=== PATIENT | male | born 1935 | race Caucasian/White ===

== ENCOUNTER → 2019-06-17 | Outpatient (CLI) | payer MEDICARE ==
[2019-06-17 12:57] LABS: HCT 48.4 % (39.0-53.0); HGB 15.4 gm/dL (13.0-17.5); MCH 31.6 pg (25.0-35.0); MCHC 31.9 g/dL (31.0-37.0); MCV 99.2 fL (80.0-100.0); Mean Platelet Volume 7.6; Platelet Count 217 k/uL (150-450); RBC 4.88 m/uL (4.30-5.90); RDW 13.2 % (11.5-15.5); WBC 6.9 k/uL (3.8-10.6)
[2019-06-17 19:26] LABS: African American GFR (CKD) 91.9 (60.0-200.0); Anion Gap 8.6 mmol/L (4.00-12.00); Carbon Dioxide 28.4 mmol/L (21.6-31.8); Non-African American GFR(CKD) 79.3 (60.0-200.0); Potassium 4.9 mmol/L (3.5-5.5)
== END | disposition home or self-care (01) ==
LOC: LABWHC1 12:05
PROVIDERS: ATTEND Internal Medicine Interventional Cardiology
DX: Z01.812 Encounter for preprocedural laboratory examination (principal); R94.39 Abnormal result of other cardiovascular function study
CPT/HCPCS: 36415; 80051; 82565; 84520; 85027

== ENCOUNTER 2019-06-22 10:46 | Day surgery (SDC) | payer MEDICARE ==
[2019-06-17 15:05] VITALS: BMI 30.8
[~2019-06-22 10:46] MED LIST: ALPRAZolam 0.25 MG TAB PO PRN; ALPRAZolam 0.5 MG TAB PO PRN; ASPIRIN 325 MG TAB PO STA; ATORVASTATIN 80 MG TAB PO STA; NITROGLYCERIN SL TABS 0.4 MG TAB SUBLINGUAL PRN; SODIUM CHLORIDE 0.9% 1,000 ML in EMPTY BAG 1 BAG IV ONE
[2019-06-22 11:41] VITALS: RESP 16
[2019-06-22] MEDS ORDERED: SODIUM CHLORIDE 0.9% 1,000 ML IV ONE (11:43)
[2019-06-22] MEDS ORDERED: LIDOCAINE 1% INJ 10MG/ML (20 ML MDV) ONE (11:56)
[2019-06-22] MEDS ORDERED: VERAPAMIL 2.5 MG/ML 2 ML AMP ONE (11:56)
[2019-06-22] MEDS ORDERED: HEPARIN SODIUM 1,000 UN/ML (10ML VL) ONE (11:59)
[2019-06-22] MEDS ORDERED: fentaNYL (PF) 50 MCG/ML 2 ML AMP ONE (11:59)
[2019-06-22] MEDS ORDERED: fentaNYL (PF) 50 MCG/ML 2 ML AMP IVP ONE (12:07)
[2019-06-22] MEDS ORDERED: LIDOCAINE 1% INJ 10MG/ML (20 ML MDV) SQ ONE (12:09)
[2019-06-22] MEDS: VERAPAMIL SYRINGE (5 MG/10 ML) INTRAARTER ONE ×2 (12:10→12:21)
[2019-06-22] MEDS ORDERED: BIVALIRUDIN BOLUS 250 MG/50 ML IV ONE (12:24)
[2019-06-22] MEDS ORDERED: BIVALIRUDIN 250 MG in SODIUM CHLORIDE 0.9% 50 ML IV ONE (12:24)
[2019-06-22] MEDS ORDERED: CLOPIDOGREL 75 MG TAB ONE (12:26)
[2019-06-22] MEDS ORDERED: CLOPIDOGREL 75 MG TAB PO ONE (12:29)
[2019-06-22] MEDS ORDERED: IOPAMIDOL-370 125ML BTL INJ ONE (12:33)
[2019-06-22] MEDS ORDERED: IOPAMIDOL-370 100ML BTL INJ ONE (12:46)
[2019-06-22] MEDS ORDERED: ATROPINE SULFATE 0.1 MG/ML 10ML SYRINGE IV PRN (12:55)
[2019-06-22] MEDS ORDERED: NITROGLYCERIN SL TABS 0.4 MG TAB SUBLINGUAL PRN (12:55)
[2019-06-22] MEDS ORDERED: MAG HYDROX/AL HYDROX/SIMETH 30 ML CUP PO PRN (12:55)
[2019-06-22] MEDS ORDERED: ZOLPIDEM 5 MG TAB PO PRN (12:55)
[2019-06-22] MEDS ORDERED: RX INFO: IV CONTRAST WAS GIVEN 1 EACH MISC MISCELLANE PRN (12:55)
[2019-06-22] MEDS ORDERED: SODIUM CHLORIDE 0.9% 1,000 ML IV SCH (13:00)
--- NOTE | 2019-06-22 14:50 | CC ---
CARDIAC CATHETERIZATION REPORT Mr. Vega an 84-year-old male with a known history of complete heart block, permanent pacemaker implantation, who recently has been complaining of progressive dyspnea on exertion, was found to have a worsening of his left ventricular systolic function. In view of that, recommendation made regarding cardiac catheterization, the procedures, risks, and complication were discussed with the patient who is in full understanding and agreement. PROCEDURE: Patient was brought to environmental laboratory technician in a fasting semi-sedated state after receiving fentanyl and Benadryl and achieving moderate conscious sedated state. Using Xylocaine anesthesia and Seldinger technique, a 6-Polish sheath was introduced in the right radial artery. Selective right and left coronary angiography performed using 5-Polish 3.5 bend, right and left Guero catheter, multiple views of the coronary artery including hemiaxial views obtained, the 5-Polish right Guero was used to cross the aortic valve and left ventricular end-diastolic pressure was calculated. Following that, catheters were removed, images were reviewed. FINDINGS: FLUOROSCOPY: There was calcification involving the left anterior descending artery and the left circumflex. LEFT MAIN: This is a large-sized vessel, bifurcating into left circumflex, left anterior descending artery. Left main coronary artery has no evidence of high-grade stenosis. LEFT ANTERIOR DESCENDING ARTERY: This is a vessel that is totally occluded proximally at the takeoff of the first diagonal branch with no significant antegrade flow into the LAD in a calcified segment. LEFT CIRCUMFLEX: This vessel is nondominant, large in caliber, giving rise to a large obtuse marginal branch. The obtuse marginal branch has a long segment of significant stenosis involving the proximal segment of the obtuse marginal branch up to 90%. The rest of the vessel has no high-grade stenosis. RIGHT CORONARY ARTERY: This is a nondominant vessel, moderate in caliber, bifurcating distally into PDA and posterolateral segment and branches. The right coronary artery in mid segment has intimal disease of 20% to 30% throughout its course. COLLATERALS: There is collateral from the RCA PDA toward the LAD and the septal frit mixer and burner. LEFT VENTRICULOGRAM: Left ventriculogram was not performed. HEMODYNAMICS: There was no gradient across the aortic valve. The left ventricular end- diastolic pressure was 10-12 mmHg. CONCLUSION: 1. Calcified coronary arteries. 2. Chronic occluded LAD. 3. Critical stenosis in the left circumflex obtuse marginal branch. 4. Mild to moderate disease in the RCA. RECOMMENDATION: In view of finding anatomy, I recommend proceeding with angioplasty and stenting of the left circumflex and once stabilized, attempt to proceed with angioplasty of the LAD. Those findings and recommendation were discussed with the patient and he is full understanding and agreement. MISTI / PREET: [id number] /
--- NOTE | 2019-06-22 17:03 | CC ---
CARDIAC CATHETERIZATION REPORT Mr. Vega is an 83-year-old male with a known history of hypertension, history of complete heart block and permanent pacemaker implantation, who has been noted to have progressive dyspnea and evidence of his new cardiomyopathy. He underwent cardiac catheterization, was found to have critical stenosis in the large 1st obtuse marginal branch as well as chronically occluded right coronary artery with collaterals from the right coronary system. In view of that, recommendation was made regarding angioplasty and stenting. The procedures as well as risks and complications were discussed with the patient who is in full understanding and agreement. PROCEDURE DETAILS: A 6-Kinyarwanda EBU 3.75 guiding catheter was introduced into the system. After cannulating the left main, a 0.014 balanced medium weight J-wire was advanced across the lesion and positioned in the distal obtuse marginal branch. Following that, a 2.5 x 15 mm Trek balloon was advanced and two inflations at 10 atmospheres were done. Following that, the balloon was removed and a 3.25 x 23 mm Xience Brionna stent was advanced, deployed and post dilated at 16 atmospheres. After the last inflation, after appropriate wait, the balloon and the guidewire were withdrawn back in the guiding catheter. Images were obtained, repeated. Those images reveal stable successful stenting. At that point, the guiding catheter, the balloon and the guidewire were removed. The sheath was removed. Hemostasis was obtained with deployment of a TR band. There was no immediate complication. Patient is returned to his room in stable condition. Of note, the patient received Angiomax per protocol as well as oral loading dose of clopidogrel. He has no chest discomfort and he was 100% paced. RESULTS: Successful stenting of a large 1st obtuse marginal branch with reduction of stenosis from 90% to 0%. RECOMMENDATIONS: Patient will be continued on aspirin, Plavix, beta nena, ANAND inhibitors and statin. He will be re-evaluated at a later time at an attempt to recannulize the right coronary artery. The procedures, risks and complications were discussed with the patient as well as the plan. Those findings were discussed with him and his family and they are in full understanding and agreement. Duration of procedure: 32 minutes. MMWILLIAML / FREDDYN: [id number] /
[2019-06-22] MEDS: GABAPENTIN 400 MG CAP PO SCH ×2 (17:19→21:24)
[2019-06-22] MEDS ORDERED: ATORVASTATIN 80 MG TAB PO SCH (21:00)
[2019-06-22] MEDS: ATENOLOL 25 MG TAB PO SCH (21:24)
[2019-06-23 06:19] LABS: African American GFR (CKD) >90 (>60 ml/min/1.73 sqM); Anion Gap 6 mmol/L; Blood Urea Nitrogen 19 mg/dL (9-20); Calcium 9.1 mg/dL (8.4-10.2); Carbon Dioxide 26 mmol/L (22-30); Chloride 104 mmol/L (98-107); Glucose 90 mg/dL (74-99); Non-African American GFR(CKD) 87 (>60 ml/min/1.73 sqM); Potassium 4.6 mmol/L (3.5-5.1); Sodium 136 mmol/L (137-145)
[2019-06-23] MEDS ORDERED: PANTOPRAZOLE 40 MG TABLET PO SCH (07:30)
--- NOTE | 2019-06-23 07:40 | PN ---
PROGRESS NOTE Mr. Vega is an 84-year-old male with a history of permanent pacemaker implantation, history of hypertension who presented with symptoms progressive dyspnea, was found to have severe worsening of his left ventricular systolic function. He underwent cardiac catheterization, was found to have critical stenosis in the left circumflex and totally occluded LAD with collateral from the right coronary system. In view of that, he underwent stenting of his left circumflex. He is doing well this morning. His breathing stable. He is denying any dizziness. No palpitation. He denies any nausea. He continued on aspirin once a day, atenolol 25 mg twice a day, Lipitor 80 mg daily, Plavix 75 mg daily, isosorbide mononitrate 30 mg daily, losartan 25 mg daily, Protonix 40 mg daily. PHYSICAL EXAMINATION: Blood pressure 105/60 with the heart rate in the 60s. LUNGS: Clear. HEART: Regular rate and rhythm. S1, S2. No S3. No rub. ABDOMEN: Soft, nontender. EXTREMITIES: No edema. Right radial pulse intact. EKG revealed a paced rhythm. LAB DATA: Lab data revealed BUN and creatinine 19 and 0.71 with a potassium 4.6. IMPRESSION: 1. Status post stenting of the left circumflex. 2. Totally occluded left anterior descending artery. 3. History of cardiomyopathy. RECOMMENDATION: Patient will be discharged home today to be re-admitted to the hospital to undergo attempt to stent and recanalized the left anterior descending artery with support from an Impella. The rationale behind the plan was discussed with the patient and his daughter and they are in full understanding and agreement. MMODL / IJN: [id number] /
[2019-06-23 07:42] VITALS: BP 125/70; PULSE 66; TEMP 97.9
[2019-06-23] MEDS: GABAPENTIN 400 MG CAP PO SCH (07:42)
[2019-06-23] MEDS: ATENOLOL 25 MG TAB PO SCH (07:42)
[2019-06-23] MEDS ORDERED: ASPIRIN 81 MG PO SCH (09:00)
[2019-06-23] MEDS ORDERED: LOSARTAN 25 MG TAB PO SCH (09:00)
[2019-06-23] MEDS ORDERED: ISOSORBIDE MONONITRATE ER 30 MG TAB.ER.24H PO SCH (09:00)
[2019-06-23] MEDS ORDERED: MULTIVITAMINS, THERA 1 EACH TAB PO SCH (09:00)
[2019-06-23] MEDS ORDERED: CLOPIDOGREL 75 MG TAB PO SCH (12:00)
== END 2019-06-23 08:49 | disposition home or self-care (01) ==
LOC: CATHCVL 10:46 → 3SCARD 15:06 → CATHCVL 06-23 08:49
PROVIDERS: ATTEND Internal Medicine Interventional Cardiology
DX: I25.10 Atherosclerotic heart disease of native coronary artery without angina pectoris (principal); I25.82 Chronic total occlusion of coronary artery; I44.2 Atrioventricular block, complete; I25.5 Ischemic cardiomyopathy; I10 Essential (primary) hypertension; Z95.0 Presence of cardiac pacemaker; Z79.82 Long term (current) use of aspirin; Z79.899 Other long term (current) drug therapy; Z79.02 Long term (current) use of antithrombotics/antiplatelets; Z72.0 Tobacco use
CPT/HCPCS: 93458; 80048; C9600; C1769 ×2; C1887; C1725; C1874; C1894; J2001; J3010; J0583; Q9967 ×2

== ENCOUNTER 2019-07-01 10:15 | Inpatient (IN) | payer MEDICARE ==
[2019-07-01] MEDS ORDERED: SODIUM CHLORIDE 0.9% 1,000 ML IV ONE (11:35)
[2019-07-01 11:42] LABS: Basophils % (A) 0 %; Eosinophils # (A) 0.3 k/uL (0-0.7); Eosinophils % (A) 3 %; HCT 46.3 % (39.0-53.0); HGB 15.7 gm/dL (13.0-17.5); Lymphocytes # (A) 1.7 k/uL (1.0-4.8); Lymphocytes % (A) 18 %; MCH 32.9 pg (25.0-35.0); MCHC 33.9 g/dL (31.0-37.0); Mean Platelet Volume 7.4; Monocytes % (A) 11 %; Neutrophils # (A) 5.9 k/uL (1.3-7.7); Neutrophils % (A) 64 %; Platelet Count 246 k/uL (150-450); RBC 4.78 m/uL (4.30-5.90); WBC 9.3 k/uL (3.8-10.6)
[2019-07-01] MEDS ORDERED: LIDOCAINE 1% INJ 10MG/ML (20 ML MDV) ONE (13:34)
[2019-07-01] MEDS ORDERED: HEPARIN SODIUM 1,000 UN/ML (10ML VL) ONE (13:35)
[2019-07-01] MEDS ORDERED: fentaNYL (PF) 50 MCG/ML 2 ML AMP ONE (13:35)
[2019-07-01] MEDS ORDERED: fentaNYL (PF) 50 MCG/ML 2 ML AMP IV ONE (13:37)
[2019-07-01] MEDS ORDERED: LIDOCAINE 1% INJ 10MG/ML (20 ML MDV) SQ ONE ×2 (13:43→13:51)
[2019-07-01] MEDS ORDERED: BIVALIRUDIN BOLUS 250 MG/50 ML IV ONE (14:09)
[2019-07-01] MEDS ORDERED: BIVALIRUDIN 250 MG in SODIUM CHLORIDE 0.9% 36 ML IV ONE (14:10)
[2019-07-01] MEDS ORDERED: IOPAMIDOL-370 125ML BTL INJ ONE (14:37)
[2019-07-01] MEDS ORDERED: MIDAZOLAM 2 MG/2 ML VIAL IV ONE (14:54)
[2019-07-01] MEDS ORDERED: NITROGLYCERIN 1000MCG/10ML SYRINGE INTRACORON ONE (14:54)
[2019-07-01] MEDS ORDERED: BIVALIRUDIN 250 MG in SODIUM CHLORIDE 0.9% 50 ML IV ONE (14:58)
[2019-07-01] MEDS ORDERED: IOPAMIDOL-370 100ML BTL INJ ONE ×2 (15:01→15:30)
[2019-07-01] MEDS ORDERED: CLOPIDOGREL 75 MG TAB ONE (15:17)
[2019-07-01] MEDS ORDERED: CLOPIDOGREL 75 MG TAB PO ONE (15:30)
[2019-07-01] MEDS ORDERED: MAG HYDROX/AL HYDROX/SIMETH 30 ML CUP PO PRN (16:00)
[2019-07-01] MEDS ORDERED: RX INFO: IV CONTRAST WAS GIVEN 1 EACH MISC MISCELLANE PRN (16:00)
[2019-07-01] MEDS ORDERED: ATROPINE SULFATE 0.1 MG/ML 10ML SYRINGE IV PRN (16:00)
[2019-07-01] MEDS ORDERED: NITROGLYCERIN SL TABS 0.4 MG TAB SUBLINGUAL PRN (16:00)
[2019-07-01] MEDS ORDERED: ZOLPIDEM 5 MG TAB PO PRN (16:00)
[2019-07-01 16:29] LABS: Glucose,Whole Blood 121 mg/dL (75-99)
[2019-07-01] MEDS: SODIUM CHLORIDE 0.9% 1,000 ML IV SCH ×2 (17:12→21:16)
[2019-07-01] MEDS ORDERED: ATORVASTATIN 80 MG TAB PO SCH (21:00)
--- NOTE | 2019-07-01 21:05 | PTCA ---
PERCUTANEOUSTRANS CORORONARY ANGIOGRAPHY Mr. Vega is an 84-year-old male with known history of complete heart block, status post permanent pacemaker implantation, prior placement of a stent in the left circumflex because of severe coronary artery disease and severe cardiomyopathy done 2 weeks ago. He had a totally occluded LAD in the proximal segment. In view of that, recommendation was made regarding angioplasty and stenting and placement of an Impella device. The procedure, its risks and complication were discussed with the patient, who was in full understanding and agreement. PROCEDURE DESCRIPTION: Patient was brought to the pathology laboratory aides teacher in a fasting, semi-sedated state after receiving fentanyl and Benadryl. Using micropuncture catheter, micropuncture sheath was introduced into the right and left femoral artery. After obtaining images of the femoral arteries, a 7-Monegasque sheath was introduced in the right femoral artery. Following that, a 2.5 Impella catheter was introduced in the left femoral artery. After dilating with subsequent dilators and after securing the Impella catheter in place and starting perfusion, attempts were made to cannulate the left main using a 7- Monegasque EBU 3.75, a 7-Monegasque, 4 bend left Guero, and a 7-Monegasque LBU 4.0. These attempts were unsuccessful. Subsequently a 7-Monegasque FL5 guiding catheter was introduced in the system. After cannulating the left main, a 0.014 balanced medium weight J-wire was advanced and positioned in distal left circumflex. Subsequently another 0.014 balanced medium weight J-wire was advanced across the total occlusion of the LAD with the help of a microcatheter. After positioning the wire distally, the microcatheter was removed and a 2.5 x 12 mm balloon was advanced and multiple inflations at 10 atmospheres were done. Following that the balloon was removed and a 0.014 Whisper J-wire was advanced into the diagonal branch and positioned distally. Subsequently a 2.5 x 12 mm Trek balloon was advanced and multiple inflations at 8 atmospheres were done. Following that, the balloon was removed and a 2.5 x 23 mm Xience Brionna stent was deployed post-dilated at 18 atmospheres. Following that the balloon was removed and another 2.5 x 12 mm Xience Brionna stent was deployed distal to the first one and post-dilated at 16 atmospheres. Following that the balloon was removed and a 3.0 x 15 mm NC Trek balloon was advanced and inflations were done up to 14 atmospheres in the proximal stent. After the last inflation, after appropriate wait, the balloon and the guidewire were withdrawn back in the guiding catheter. Images were obtained and repeated. Those images reveal stable successful stenting. At that point, the Impella catheter was weaned off and removed. Hemostasis was obtained with deployment of a Perclose that was placed pre insertion as well as an 8-Monegasque Angio- Seal, obtaining good hemostasis on the left side. Attempts to Perclose the right femoral artery were unsuccessful as well as Angio-Seal, so the catheter was removed and pressure was applied. There was no immediate complication. Patient was returned to his room in stable condition. Of note, the patient received Angiomax per protocol. He had mild chest discomfort that resolved at the end procedure. RESULT: Successful stenting of the proximal left anterior descending artery with reduction of stenosis from 100% to 0%. RECOMMENDATIONS: Patient will be continued on aspirin, Plavix, beta blockers and statin. The importance of dual antiplatelet treatment was discussed with the patient and his family, who are in full understanding and agreement. MMODL / IJN: [id number] /
--- NOTE | 2019-07-01 21:05 | PTCA ---
PERCUTANEOUSTRANS CORORONARY ANGIOGRAPHY ADDENDUM TO PERCUTANEOUS TRANSLUMINAL CORONARY ANGIOPLASTY: Duration of procedure was 107 minutes. MISTI / FREDDYN: [id number] /
[2019-07-01] MEDS: GABAPENTIN 400 MG CAP PO SCH (21:11)
[2019-07-01] MEDS: ATENOLOL 25 MG TAB PO SCH (21:11)
--- NOTE | 2019-07-01 21:11 | LTR ---
July 01, 2019 To: Dr. Kwok Re: Glenn Vega (37) Dear Dr. Kwok: I had the pleasure of performing coronary angioplasty and stenting on Mr. Vega at [facility] today, and a full copy of the procedure note will be forwarded to you. In brief, he underwent successful recanalization of a chronically occluded LAD with the assistance of an Impella catheter. I am hopeful that this procedure will help improve his left ventricular systolic function and his symptoms. I will keep you updated on his progress. Thank you again for allowing me to participate in his care. Please feel free to call with any questions. Sincerely, MD MISTI Bernal / PREET: [id number] /
[2019-07-02 04:14] VITALS: TEMP 97.6
[2019-07-02 05:05] LABS: Basophils % (A) 0 %; Eosinophils # (A) 0.3 k/uL (0-0.7); Eosinophils % (A) 3 %; HCT 40.4 % (39.0-53.0); HGB 13.6 gm/dL (13.0-17.5); Lymphocytes # (A) 0.9 k/uL (1.0-4.8); Lymphocytes % (A) 11 %; MCH 32.6 pg (25.0-35.0); MCHC 33.6 g/dL (31.0-37.0); Mean Platelet Volume 7.7; Monocytes # (A) 1.1 k/uL (0-1.0); Monocytes % (A) 13 %; Neutrophils # (A) 5.8 k/uL (1.3-7.7); Neutrophils % (A) 69 %; Platelet Count 217 k/uL (150-450); RBC 4.17 m/uL (4.30-5.90); RDW 13.1 % (11.5-15.5); WBC 8.5 k/uL (3.8-10.6)
[2019-07-02 05:17] LABS: African American GFR (CKD) >90 (>60 ml/min/1.73 sqM); Anion Gap 5 mmol/L; Blood Urea Nitrogen 16 mg/dL (9-20); Calcium 8.6 mg/dL (8.4-10.2); Carbon Dioxide 27 mmol/L (22-30); Chloride 103 mmol/L (98-107); Glucose 110 mg/dL (74-99); Non-African American GFR(CKD) >90 (>60 ml/min/1.73 sqM); Potassium 4.4 mmol/L (3.5-5.1); Sodium 135 mmol/L (137-145)
[2019-07-02] MEDS ORDERED: PANTOPRAZOLE 40 MG TABLET PO SCH (07:30)
--- NOTE | 2019-07-02 07:39 | PN ---
PROGRESS NOTE Mr. Vega is an 84-year-old male who was admitted yesterday and underwent stenting of a chronically occluded LAD with an Impella placement. He is doing well this morning. His breathing is stable. He is denying any chest pain. No dizziness. No palpitation. He continues to be on aspirin once a day, Plavix 75 mg daily, Lipitor 80 mg daily, gabapentin 800 mg 3 times a day, isosorbide mononitrate 30 mg daily, losartan 25 mg daily. PHYSICAL EXAMINATION: Blood pressure 106/60 with the heart rate in the 60s. LUNGS: Clear. HEART: Regular rate and rhythm. S1, S2. No S3. With systolic murmur. No diastolic murmur. ABDOMEN: Soft, nontender. EXTREMITIES: No edema. Right groin with mild ecchymosis but no hematoma. Left groin no hematoma. LAB DATA: Lab data revealed BUN and creatinine of 16 and 0.65, hemoglobin 13.6. EKG revealed paced rhythm. IMPRESSION: 1. Status post stenting of the chronically occluded LAD with Impella support, stable. 2. History of cardiomyopathy. 3. Status post permanent pacemaker implantation. RECOMMENDATION: Patient will be discharged home today and followed as an outpatient. MMODL / IJN: [id number] /
[2019-07-02 08:41] VITALS: BP 109/56; PULSE 60
[2019-07-02] MEDS: ATENOLOL 25 MG TAB PO SCH (08:42)
[2019-07-02] MEDS: GABAPENTIN 400 MG CAP PO SCH (08:42)
[2019-07-02] MEDS ORDERED: CLOPIDOGREL 75 MG TAB PO SCH (09:00)
[2019-07-02] MEDS ORDERED: ASPIRIN 81 MG PO SCH (09:00)
[2019-07-02] MEDS ORDERED: ISOSORBIDE MONONITRATE ER 30 MG TAB.ER.24H PO SCH (09:00)
[2019-07-02] MEDS ORDERED: LOSARTAN 25 MG TAB PO SCH (09:00)
[2019-07-02 09:04] VITALS: RESP 26
== END 2019-07-02 12:04 | disposition home or self-care (01) | DRG 215 ==
LOC: 2ORMAIN 10:47 → EDSTATUS 12:00 → 2SICU 15:55
PROVIDERS: ADMIT Internal Medicine Interventional Cardiology; ATTEND Internal Medicine Interventional Cardiology
DX: I25.10 Atherosclerotic heart disease of native coronary artery without angina pectoris (principal); I44.2 Atrioventricular block, complete; E66.9 Obesity, unspecified; I25.5 Ischemic cardiomyopathy; I25.82 Chronic total occlusion of coronary artery; I10 Essential (primary) hypertension; F17.290 Nicotine dependence, other tobacco product, uncomplicated; I08.3 Combined rheumatic disorders of mitral, aortic and tricuspid valves; Z68.30 Body mass index [BMI] 30.0-30.9, adult; Z95.0 Presence of cardiac pacemaker; Z79.899 Other long term (current) drug therapy; Z79.82 Long term (current) use of aspirin
CPT/HCPCS: 80048; 85025

== ENCOUNTER → 2019-10-19 | Day surgery (SDC) | payer MEDICARE ==
[2019-10-16 10:59] VITALS: BMI 29.4
[~2019-10-19] MED LIST changes: +ACETAMINOPHEN IV (For NPO) 1,000 MG in EMPTY BAG 1 BAG IVPB ONE; +ACETAMINOPHEN TAB 325 MG TAB PO PRN; -ALPRAZolam 0.25 MG TAB PO PRN; -ALPRAZolam 0.5 MG TAB PO PRN; -ASPIRIN 325 MG TAB PO STA; -ATORVASTATIN 80 MG TAB PO STA; +HYDROcodone/APAP 5-325MG 1 EACH TAB PO PRN; +HYDROmorphone 0.5 MG/0.5 ML SYRINGE IVP PRN; +LACTATED RINGERS 1,000 ML IV SCH; +LIDOCAINE 1% INJ 10MG/ML (20 ML MDV) ONE; +LIDOCAINE 1% INJ 10MG/ML (20 ML MDV) SQ ONE; +MIDAZOLAM 2 MG/2 ML VIAL IV PRN; +MIDAZOLAM 2 MG/2 ML VIAL ONE; -NITROGLYCERIN SL TABS 0.4 MG TAB SUBLINGUAL PRN; +SODIUM CHLORIDE 0.9% 1,000 ML IV SCH; -SODIUM CHLORIDE 0.9% 1,000 ML in EMPTY BAG 1 BAG IV ONE; +VANCOMYCIN 1,000 MG in SODIUM CHLORIDE 0.9% 250 ML IVPB STA; +ceFAZolin 1,000 MG in SODIUM CHLORIDE 0.9% IRRIGATIO 250 ML IRRIGATION ONE; +fentaNYL (PF) 50 MCG/ML 2 ML AMP ONE
[2019-10-19 07:25] VITALS: RESP 18; TEMP 97.9
[2019-10-19 07:42] LABS: Basophils % (A) 0 %; Eosinophils # (A) 0.3 k/uL (0-0.7); Eosinophils % (A) 5 %; HCT 43.9 % (39.0-53.0); HGB 14.8 gm/dL (13.0-17.5); Lymphocytes # (A) 1.3 k/uL (1.0-4.8); Lymphocytes % (A) 21 %; MCH 33.3 pg (25.0-35.0); MCHC 33.7 g/dL (31.0-37.0); MCV 98.8 fL (80.0-100.0); Monocytes # (A) 0.9 k/uL (0-1.0); Monocytes % (A) 14 %; Neutrophils # (A) 3.7 k/uL (1.3-7.7); Neutrophils % (A) 57 %; Platelet Count 207 k/uL (150-450); RBC 4.44 m/uL (4.30-5.90); RDW 13.5 % (11.5-15.5); WBC 6.4 k/uL (3.8-10.6)
--- NOTE | 2019-10-19 10:47 | P.PCN ---
Preoperative Diagnosis: Left upper extremity venogram 15 mL of IV dye was injected in the left upper extremity vein and axillary/subclavian vein was found to be patent on the left side. Plan Proceed with upgrade to a biventricular pacing system
--- NOTE | 2019-10-19 13:04 | PCN ---
PROCEDURE NOTE An 84-year-old male patient with complete heart block, status post dual-chamber pacemaker 7 years back, whose device is at the EARLINE and awaiting generator change. However, he is 100% RV paced, has cardiomyopathy underlying complete heart block with bradycardia secondary to complete heart block. After a detailed discussion with him and his family members. We decided to upgrade him to a biventricular pacemaker. He was brought to the EP lab. A left upper extremity venogram was performed separately. Following that, the left pectoral area was prepped and draped as per protocol. 1% lidocaine was used for local anesthesia. An incision was made directly over the previous surgical site and carried down to the level of the generator. The generator was explanted. A subfascial pocket was made. The device was in fairly subcutaneous. A new subfascial pocket was made. Following that, hemostasis was assured with the system. The left axillary vein was accessed at the second rib level and an 8-Macedonian sheath was placed in the axillary/subclavian vein. Following this with an appropriately-sheath, a leaders position for His bundle mapping, this was a Medtronic model #3830, 69 cm in length and serial #[id number]. Pace mapping was performed. The intrinsic RV paced QRS was 221 milliseconds with pacing nonselective capture could be achieved with a QRS width about 133 milliseconds. This is a narrow Squibb QRS achieved and the lead was screwed in and was found to be very stable. The sheath was removed partially from the right atrium and then completely and the leads remained stable and adequate. An adequate heel was placed was given and the lead was secured to the underlying pectoralis muscle and the sheath was removed. The pacing threshold was excellent. Nonselective capture was seen up until 2.5 V at 1 millisecond with RV pacing thereafter with complete loss of capture at 0.75 V. Pacing impedance 456 ohms. RV pacing impedance 399 ohms. No underlying QRS. Pacing threshold 1.25 V at 0.4 milliseconds. P waves 2.8 mV. pacing impedance 399 ohms and pacing threshold 0.5 V at 0.4 milliseconds. The LV lead was secured to the underlying pectoralis muscle. The leads were connected to the new generator. The explanted generator was a dual-chamber Medtronic Sensipar, serial number [id number]. The new generator was a biventricular pacemaker CRTP Leonila MRI, model number W1TR02, serial #[id number], the leads and the generator placed in a subfascial pocket and the wound was closed in 3 layers and dressed per protocol. EXPECTANT RESULT: Successful upgrade to a biventricular pacemaker for management of complete heart block without any pacing cardiomyopathy. Narrowing of the QRS from 221 milliseconds to 133-136 milliseconds with nonselective capture of the His lead with complete loss of capture at 0.75 V at 1 millisecond. Patient tolerated the procedure well without any acute complications. The device was then programmed to DDDR mode with an AV delay of 154/180 milliseconds with preferential His bundle pacing and an LV RV offset of 80 milliseconds. The patient tolerated the procedure well without any acute complications. He received IV vancomycin and IV Kefzol preoperatively. He will be discharged home the same day if his device interrogation is within normal limits and after his second dose of antibiotics at about 3 pm. He will follow up in the Device [facility] within a week. MISTI / FREDDYN: [id number] /
--- NOTE | 2019-10-19 14:15 | XR ---
EXAMINATION TYPE: XR chest 2V DATE OF EXAM: 10/19/2019 COMPARISON: 08/16/2009 TECHNIQUE: PA and lateral views submitted. HISTORY: Post pacemaker placement FINDINGS: The heart is enlarged. Cardiac device is seen and there is arthropathy of the shoulders. No sizable p neumothorax. No overt failure. No definite consolidation. Multi lead pacemaker noted. Degenerative ch richard of the spine. IMPRESSION: 1. No pneumothorax post pacemaker placement.
[2019-10-19 15:18] VITALS: BP 108/64; PULSE 59
== END | disposition home or self-care (01) ==
LOC: CATHEP 06:40
PROVIDERS: ATTEND Internal Medicine Clinical Cardiac Electrophysiology
DX: Z45.010 Encounter for checking and testing of cardiac pacemaker pulse generator [battery] (principal); I25.5 Ischemic cardiomyopathy; I44.2 Atrioventricular block, complete; I25.10 Atherosclerotic heart disease of native coronary artery without angina pectoris; I10 Essential (primary) hypertension; E78.2 Mixed hyperlipidemia; Z87.891 Personal history of nicotine dependence; Z95.5 Presence of coronary angioplasty implant and graft; Z98.890 Other specified postprocedural states; I25.2 Old myocardial infarction; M19.90 Unspecified osteoarthritis, unspecified site; H93.299 Other abnormal auditory perceptions, unspecified ear; Z87.11 Personal history of peptic ulcer disease; K21.9 Gastro-esophageal reflux disease without esophagitis; M10.9 Gout, unspecified; Z79.02 Long term (current) use of antithrombotics/antiplatelets; Z79.82 Long term (current) use of aspirin; Z79.899 Other long term (current) drug therapy
CPT/HCPCS: 33225; 33229; 85025; 71046; C1769 ×2; C1898; C2621; U0003; J2250; J3370; J0690; J2001; J3010

== ENCOUNTER → 2020-09-15 | Day surgery (SDC) | payer MEDICARE ==
[2020-09-12 16:19] VITALS: BMI 31.2
[~2020-09-15] MED LIST changes: -ACETAMINOPHEN IV (For NPO) 1,000 MG in EMPTY BAG 1 BAG IVPB ONE; -ACETAMINOPHEN TAB 325 MG TAB PO PRN; -HYDROcodone/APAP 5-325MG 1 EACH TAB PO PRN; -HYDROmorphone 0.5 MG/0.5 ML SYRINGE IVP PRN; -LACTATED RINGERS 1,000 ML IV SCH; -LIDOCAINE 1% INJ 10MG/ML (20 ML MDV) ONE; -LIDOCAINE 1% INJ 10MG/ML (20 ML MDV) SQ ONE; -MIDAZOLAM 2 MG/2 ML VIAL IV PRN; -MIDAZOLAM 2 MG/2 ML VIAL ONE; -VANCOMYCIN 1,000 MG in SODIUM CHLORIDE 0.9% 250 ML IVPB STA; -ceFAZolin 1,000 MG in SODIUM CHLORIDE 0.9% IRRIGATIO 250 ML IRRIGATION ONE; -fentaNYL (PF) 50 MCG/ML 2 ML AMP ONE
== END ==
LOC: CATHEP 06:03
PROVIDERS: ATTEND Internal Medicine Clinical Cardiac Electrophysiology
DX: Z53.8 Procedure and treatment not carried out for other reasons (principal)

== ENCOUNTER 2020-09-22 09:55 | Day surgery (SDC) | payer MEDICARE ==
[2020-09-19 15:41] VITALS: BMI 30.5
[2020-09-22 10:24] VITALS: RESP 16; TEMP 97.8
[2020-09-22] MEDS ORDERED: IOPAMIDOL-250 50ML BTL IV ONE (11:38)
[2020-09-22 11:55] VITALS: BP 139/78; PULSE 53
--- NOTE | 2020-09-22 15:16 | P.EPPROC ---
- EP Procedure Note Electrophysiology Procedure Note: Diagnosis Elevated His bundle lead thresholds Cinefluoroscopy of the lead Cinefluoroscopy of the biventricular pacemaker and leads was performed His bundle lead was in excellent stable position Right atrial lead in right atrial appendage RV lead in the RV apex No fractures or breaks no discharge point Left upper extremity venogram was performed 50 mL IV dye injected Patent axillary vein and subclavian venous system Pacemaker interrogation performed Atrial pacing impedance 380 ohms, P waves 2.3 mV Pacing threshold 1.5 V at 0.4 ms RV lead pacing impedance 380 ohms Pacing threshold 1.75 V at 0.4 ms R waves 10.4 mV His bundle lead thresholds 3.5 V at 1 ms but intermittently has gone up to 6 V at 1 ms Twelve-lead EKG showed AV sequential pacing with RV capture Patient has complete heart block RV capture noted with His bundle pacing The device was then reprogrammed to AV sequential pacing with RV pacing His bundle pacing was turned off They should increase battery longevity RV lead programmed to 3.5 V at 0.4 ms We will reassess within a month Clinical assessment for heart failure At this time patient denies any undue shortness of breath
== END 2020-09-22 12:41 | disposition home or self-care (01) ==
LOC: CATHEP 09:55
PROVIDERS: ATTEND Internal Medicine Clinical Cardiac Electrophysiology
DX: T82.110A Breakdown (mechanical) of cardiac electrode, initial encounter (principal); I25.10 Atherosclerotic heart disease of native coronary artery without angina pectoris; I10 Essential (primary) hypertension; Z20.822 Contact with and (suspected) exposure to COVID-19; I25.5 Ischemic cardiomyopathy; Z95.5 Presence of coronary angioplasty implant and graft; Z79.82 Long term (current) use of aspirin; Z79.02 Long term (current) use of antithrombotics/antiplatelets; Z79.899 Other long term (current) drug therapy
CPT/HCPCS: 36005; 75820; 87635; Q9966; 76000